=== PATIENT | female | born 1975 | race Asian ===

== ENCOUNTER 2017-07-23 14:26 | Outpatient (CLI) | payer BC ==
--- NOTE | 2017-07-25 16:28 | Mammography Report ---
DIGITAL SCREENING MAMMOGRAM: 07/23/2017 CLINICAL INDICATION: A 42-year-old with history of late childbearing, for screening. COMPARISON: Films from [place], [place] dated 07/04/2016, 05/21/2015. TECHNIQUE: Routine CC and MLO projections were obtained of the breasts. Bilateral laterally exaggera isidro craniocaudal views. FINDINGS: The breasts again demonstrate extremely dense parenchyma bilaterally, limiting the sensiti vity of mammography. Coarse and punctate, typically benign calcifications are present. No suspicious masses, clustered microcalcifications, or regions of architectural distortion are identified. IMPRESSION: BENIGN FINDINGS. RECOMMENDATION: ROUTINE ANNUAL SCREENING UNLESS OTHERWISE CLINICALLY INDICATED. BIRADS CATEGORY 2-BENIGN FINDINGS. STANDARD QUALIFYING STATEMENTS 1. This examination was reviewed with the aid of Computer-Aided Detection (CAD). 2. A negative or benign imaging report should not delay biopsy if clinically suspicious findings are present. Consider surgical consultation if warranted. More than 5% of cancers are not identified by i maging. 3. Dense breasts may obscure an underlying neoplasm. JOB #: [id number] EXT JOB #:[id number]
== END 2017-07-23 14:27 | disposition home or self-care (01) ==
LOC: DI 14:26
PROVIDERS: ATTEND Naturopath
DX: Z12.31 Encounter for screening mammogram for malignant neoplasm of breast (principal)
CPT/HCPCS: 77067